=== PATIENT | male | born 1960 | race Caucasian/White ===

== ENCOUNTER 2020-08-10 23:29 | Inpatient (IN) | payer OTHER ==
[~2020-08-10] VITALS: Ht 167.6 cm; Wt 80.3 kg
[2020-08-11 00:49] LABS: BASOPHILS % 0.7 % (0.0-2.0); EOSINOPHILS % 1.1 % (0.0-5.0); HEMOGLOBIN. 14.9 g/dL (12.0-16.0); LYMPHOCYTES % 20.7 % (20.0-50.0); MEAN CORPUSCULAR HEMOGLOBIN 33.3 pg (28.0-32.0); MEAN PLATELET VOLUME 8.6 fl (7.4-10.4); MONOCYTES % 5.6 % (2.0-8.0); NEUTROPHILS % 71.9 % (40.0-76.0); PLATELET 223 x1000/uL (130-400); RED BLOOD CELL COUNT 4.47 mill/uL (4.2-5.4); RED CELL DISTRIBUTION WIDTH 12.9 % (11.6-14.6)
[2020-08-11 00:52] LABS: CHLORIDE 107 mEq/L (98-107)
[2020-08-11 00:56] LABS: ETHANOL BLOOD < 10 mg/dL
[2020-08-11] MEDS ORDERED: KETOROLAC 15MG/ML VIAL IV ONE (01:15)
[2020-08-11] MEDS ORDERED: MORPHINE SULFATE 4 MG/ML CPJ (NOT FOR IM USE) IV ONE (03:15)
[2020-08-11] MEDS ORDERED: ONDANSETRON HCL 4MG/2ML INJ IV ONE (03:15)
[2020-08-11 03:31] LABS: CLARITY URINE CLOUDY (CLEAR); COLOR URINE YELLOW (YELLOW); KETONES URINE NEGATIVE (NEGATIVE); LEUKOCYTE ESTERASE URINE TRACE (NEGATIVE); NITRITE URINE NEGATIVE (NEGATIVE); OCCULT BLOOD URINE NEGATIVE (NEGATIVE); PROTEIN URINE 1+ (NEGATIVE); SPECIFIC GRAVITY URINE 1.023 (1.005-1.030); UROBILINOGEN URINE 0.2 E.U./dL (0.2-1.0)
[2020-08-11 03:44] LABS: *BENZODIAZEPINES SCREEN URINE NEGATIVE (NEGATIVE); *COCAINE SCREEN URINE NEGATIVE (NEGATIVE)
[2020-08-11 03:45] LABS: *AMPHETAMINES SCREEN URINE NEGATIVE (NEGATIVE); *BARBITURATES SCREEN URINE NEGATIVE (NEGATIVE); CANNABINOID URINE SCREEN NEGATIVE (NEGATIVE); METHADONE URINE SCREEN NEGATIVE (NEGATIVE); OPIATES URINE SCREEN NEGATIVE (NEGATIVE); PHENCYCLIDINE URINE SCREEN NEGATIVE (NEGATIVE)
[2020-08-11] MEDS ORDERED: LORAZEPAM 2MG/ML CPJ IV PRN (08:15)
[2020-08-11] MEDS ORDERED: IPRATROPIUM/ALBUTEROL 0.5-3(2.5)MG/3ML NEB HHN PRN (08:15)
[2020-08-11] MEDS ORDERED: CLONIDINE 0.1MG TABLET PO PRN (08:15)
[2020-08-11] MEDS ORDERED: GUAIFENESIN 200MG/10ML SUGAR FREE UDC PO PRN (08:15)
[2020-08-11] MEDS ORDERED: DOCUSATE SODIUM 100MG CAPSULE PO PRN (08:15)
[2020-08-11] MEDS ORDERED: DIPHENHYDRAMINE 50MG/ML VIAL IV PRN (08:15)
[2020-08-11] MEDS ORDERED: MAGNESIUM/ALUMINUM HYDROXIDE/SIMETHICONE 30ML UDC PO PRN (08:15)
[2020-08-11] MEDS ORDERED: ACETAMINOPHEN 325MG TABLET PO PRN (08:15)
[2020-08-11] MEDS ORDERED: HYDRALAZINE 20MG/ML VIAL IV PRN (08:15)
[2020-08-11] MEDS: DEXT 5%/0.45% NACL 1000ML 1,000 ML IV SCH (08:34)
[2020-08-11] MEDS: MORPHINE SULFATE 2 MG/ML CPJ (NOT FOR IM USE) IV PRN ×3 (10:28→21:57)
[2020-08-11] MEDS: HYDROCODONE/ACETAMINOPHEN 5/325MG TABLET PO PRN ×2 (12:14→13:46)
[2020-08-11] MEDS: LEVETIRACETAM 500MG PREMIX 100 ML IV SCH ×2 (13:44→22:54)
[2020-08-11] MEDS: SODIUM CHLORIDE 0.9% INJ 3ML FLUSH IVF SCH ×2 (14:15→22:12)
[2020-08-11] MEDS: ONDANSETRON HCL 4MG/2ML INJ IV PRN (21:57)
[2020-08-12 01:01] LABS: CREATINE KINASE MB FRACTION 24.1 ng/mL (0.5-3.6)
[2020-08-12 01:11] LABS: CREATINE KINASE 3071 IU/L (39-308)
[2020-08-12] MEDS: MORPHINE SULFATE 2 MG/ML CPJ (NOT FOR IM USE) IV PRN (02:14)
[2020-08-12] MEDS: DEXT 5%/0.45% NACL 1000ML 1,000 ML IV SCH ×2 (02:14→17:59)
[2020-08-12] MEDS: ONDANSETRON HCL 4MG/2ML INJ IV PRN (02:14)
[2020-08-12] MEDS: SODIUM CHLORIDE 0.9% INJ 3ML FLUSH IVF SCH ×3 (06:06→20:53)
[2020-08-12 06:45] LABS: CHLORIDE 107 mEq/L (98-107)
[2020-08-12 06:56] LABS: BASOPHILS % 0.3 % (0.0-2.0); EOSINOPHILS % 0.1 % (0.0-5.0); HEMATOCRIT. 37.6 % (42.0-52.0); LYMPHOCYTES % 7.3 % (20.0-50.0); MEAN CORPUSCULAR HEMOGLOBIN 32.8 pg (28.0-32.0); MEAN CORPUSCULAR VOLUME 94.7 fL (80.0-94.0); MEAN PLATELET VOLUME 8.7 fl (7.4-10.4); MONOCYTES % 8.5 % (2.0-8.0); NEUTROPHILS % 83.8 % (40.0-76.0); PLATELET 196 x1000/uL (130-400); RED BLOOD CELL COUNT 3.97 mill/uL (4.7-6.1); RED CELL DISTRIBUTION WIDTH 12.6 % (11.6-14.6)
[2020-08-12 09:30] VITALS: BP 128/79
[2020-08-12] MEDS: HYDROCODONE/ACETAMINOPHEN 5/325MG TABLET PO PRN ×2 (10:20→21:14)
[2020-08-12 12:00] VITALS: BP 126/72
[2020-08-12 16:00] VITALS: BP 115/62
[2020-08-12 20:00] VITALS: BP 148/75
[2020-08-12] MEDS: LEVETIRACETAM 500MG PREMIX 100 ML IV SCH (20:53)
[2020-08-13] VITALS (9 sets, daily range): BP systolic 102–131; BP diastolic 50–74
[2020-08-13] MEDS: HYDROCODONE/ACETAMINOPHEN 5/325MG TABLET PO PRN ×3 (02:47→21:10)
[2020-08-13] MEDS: SODIUM CHLORIDE 0.9% INJ 3ML FLUSH IVF SCH ×2 (05:52→16:08)
[2020-08-13] MEDS ORDERED: LEVETIRACETAM 500MG PREMIX 100 ML IV SCH (11:00)
[2020-08-13] MEDS: DEXT 5%/0.45% NACL 1000ML 1,000 ML IV SCH (11:41)
[2020-08-13] MEDS: LEVETIRACETAM 500MG TABLET PO SCH (21:11)
[2020-08-14] VITALS: BP 121/71
[2020-08-14] MEDS: SODIUM CHLORIDE 0.9% INJ 3ML FLUSH IVF SCH ×4 (01:23→20:43)
[2020-08-14] MEDS: HYDROCODONE/ACETAMINOPHEN 5/325MG TABLET PO PRN ×3 (03:37→20:32)
[2020-08-14] MEDS: DEXT 5%/0.45% NACL 1000ML 1,000 ML IV SCH ×2 (03:39→20:29)
[2020-08-14 06:00] VITALS: BP 128/73
[2020-08-14] MEDS: LEVETIRACETAM 500MG TABLET PO SCH ×2 (08:26→20:43)
[2020-08-14 12:01] VITALS: BP 121/74
[2020-08-14] MEDS: ENOXAPARIN 40MG/0.4ML SYR SUBCUT SCH (12:42)
[2020-08-14 14:01] VITALS: BP 138/77
[2020-08-14 18:00] VITALS: BP 147/77
[2020-08-14 20:00] VITALS: BP 136/78
[2020-08-15] VITALS: BP 121/84
[2020-08-15] MEDS: HYDROCODONE/ACETAMINOPHEN 5/325MG TABLET PO PRN ×2 (01:21→20:30)
[2020-08-15] MEDS: SODIUM CHLORIDE 0.9% INJ 3ML FLUSH IVF SCH ×3 (05:19→22:00)
[2020-08-15 06:00] VITALS: BP 136/88
[2020-08-15] MEDS ORDERED: VANCOMYCIN HCL 1 GM/VIAL ONE ×2 (06:45→09:12)
[2020-08-15] MEDS ORDERED: LIDOCAINE HCL/EPINEPHRINE 1%-EPI 1:100,000 20 ML VIAL ONE (06:45)
[2020-08-15] MEDS ORDERED: BACITRACIN 50,000 UNITS/VIAL ONE ×2 (06:45→07:09)
[2020-08-15] MEDS ORDERED: FENTANYL CITRATE/PF 50MCG/ML 2ML VIAL ONE (07:16)
[2020-08-15] MEDS ORDERED: MIDAZOLAM HCL 2 MG/2 ML VIAL ONE (07:16)
[2020-08-15] MEDS ORDERED: CEFAZOLIN SODIUM 1000MG/VIAL ONE (07:17)
[2020-08-15] MEDS ORDERED: SODIUM CHLORIDE 0.9% 10ML VIAL ONE (07:17)
[2020-08-15] MEDS ORDERED: LIDOCAINE HCL/PF 1% 10 MG/ML 5ML VIAL ONE (07:17)
[2020-08-15] MEDS ORDERED: PROPOFOL 200MG/20ML VIAL IV ONE (07:17)
[2020-08-15] MEDS ORDERED: ROCURONIUM BROMIDE 10MG/ML VIAL 5ML IV ONE (07:19)
[2020-08-15] MEDS ORDERED: SUCCINYLCHOLINE CHLORIDE 200MG/10ML IV ONE (07:20)
[2020-08-15] MEDS ORDERED: DEXAMETHASONE 4MG/ML 1ML VIAL ONE (07:59)
[2020-08-15] MEDS ORDERED: ONDANSETRON HCL 4MG/2ML INJ ONE (07:59)
[2020-08-15] MEDS ORDERED: TRANEXAMIC ACID 1,000 MG in SODIUM CHLORIDE 0.9% 100 ML IV NR (08:00)
[2020-08-15] MEDS ORDERED: TRANEXAMIC ACID 1,000 MG/10 ML IV ONE (08:00)
[2020-08-15] MEDS ORDERED: TRANEXAMIC ACID 1,000 MG/10 ML IV SCH (08:15)
[2020-08-15] MEDS ORDERED: MORPHINE SULFATE/PF 1MG/ML 10ML AMP ONE (08:22)
[2020-08-15] MEDS ORDERED: EPINEPHRINE 1:1000 1 MG/ML AMP ONE (08:23)
[2020-08-15] MEDS ORDERED: KETOROLAC 30MG/ML VIAL ONE (08:24)
[2020-08-15] MEDS ORDERED: ROPIVACAINE HCL 10MG/ML 20 ML VIAL EPI ONE ×2 (08:25→08:32)
[2020-08-15] MEDS: ENOXAPARIN 40MG/0.4ML SYR SUBCUT SCH (09:00)
[2020-08-15] MEDS: LEVETIRACETAM 500MG TABLET PO SCH ×2 (09:00→20:24)
[2020-08-15] MEDS ORDERED: EPHEDRINE SULFATE 50MG/ML VIAL ONE (09:16)
[2020-08-15] MEDS ORDERED: KETOROLAC 30MG/ML VIAL IV PRN (10:45)
[2020-08-15] MEDS ORDERED: HYDROMORPHONE HCL/PF 2MG/ML CPJ IV PRN (11:00)
[2020-08-15] MEDS: ONDANSETRON HCL 4MG/2ML INJ IV PRN (11:52)
[2020-08-15] MEDS ORDERED: CEFAZOLIN 1000MG PREMIX 50 ML IV SCH (12:00)
[2020-08-15 13:30] VITALS: BP 131/82
[2020-08-15 13:46] LABS: HEMATOCRIT. 29.8 % (42.0-52.0); HEMOGLOBIN. 10.4 g/dL (14.0-18.0); MEAN CORPUSCULAR HEMOGLOBIN 32.7 pg (28.0-32.0); MEAN CORPUSCULAR VOLUME 93.9 fL (80.0-94.0); MEAN PLATELET VOLUME 7.8 fl (7.4-10.4); PLATELET 245 x1000/uL (130-400); RED BLOOD CELL COUNT 3.18 mill/uL (4.7-6.1); RED CELL DISTRIBUTION WIDTH 12.4 % (11.6-14.6)
[2020-08-15] MEDS: DEXT 5%/0.45% NACL 1000ML 1,000 ML IV SCH (13:55)
[2020-08-15 14:00] VITALS: BP 135/84
[2020-08-15 14:12] LABS: CHLORIDE 110 mEq/L (98-107)
[2020-08-15 15:03] LABS: PLATELET ESTIMATE NORMAL
[2020-08-15 17:45] VITALS: BP 134/81
[2020-08-15] MEDS: CEFAZOLIN 1000MG PREMIX 50 ML IV SCH (21:34)
[2020-08-16] VITALS: BP 121/71
[2020-08-16 06:00] VITALS: BP 136/84
[2020-08-16] MEDS: CEFAZOLIN 1000MG PREMIX 50 ML IV SCH ×3 (06:30→21:04)
[2020-08-16] MEDS: SODIUM CHLORIDE 0.9% INJ 3ML FLUSH IVF SCH ×3 (06:30→21:04)
[2020-08-16] MEDS: LEVETIRACETAM 500MG TABLET PO SCH ×2 (10:17→21:04)
[2020-08-16] MEDS: ENOXAPARIN 40MG/0.4ML SYR SUBCUT SCH (10:20)
[2020-08-16] MEDS: HYDROCODONE/ACETAMINOPHEN 5/325MG TABLET PO PRN (10:50)
[2020-08-16 12:00] VITALS: BP 119/67
[2020-08-16] MEDS: DEXT 5%/0.45% NACL 1000ML 1,000 ML IV SCH ×2 (14:10→22:20)
[2020-08-16 18:00] VITALS: BP 124/87
[2020-08-16 20:00] VITALS: BP 136/84
[2020-08-17] VITALS: BP 134/70
[2020-08-17] MEDS: SODIUM CHLORIDE 0.9% INJ 3ML FLUSH IVF SCH ×3 (05:49→22:47)
[2020-08-17] MEDS: CEFAZOLIN 1000MG PREMIX 50 ML IV SCH ×3 (05:49→22:47)
[2020-08-17 06:00] VITALS: BP 134/79
[2020-08-17] MEDS: LEVETIRACETAM 500MG TABLET PO SCH ×2 (08:26→22:47)
[2020-08-17] MEDS: ENOXAPARIN 40MG/0.4ML SYR SUBCUT SCH (08:27)
[2020-08-17] MEDS: DEXT 5%/0.45% NACL 1000ML 1,000 ML IV SCH (08:27)
[2020-08-17 12:00] VITALS: BP 114/55
[2020-08-17 18:00] VITALS: BP 139/96
[2020-08-17 20:00] VITALS: BP 119/71
[2020-08-17 23:03] VITALS: BP 130/78
[2020-08-18 00:01] VITALS: BP 138/81
[2020-08-18 02:00] VITALS: BP 116/77
[2020-08-18 04:00] VITALS: BP 113/75
== END 2020-08-18 05:10 | disposition home or self-care (01) | DRG 483 ==
LOC: EDBD 23:29 → EDSEX 23:29 → ER 23:29 → 3WST 08-11 04:39 → ENRESERV 08-12 07:28
PROVIDERS: ADMIT Internal Medicine; ATTEND Internal Medicine
PROC: 0RRJ00Z Replacement of Right Shoulder Joint with Reverse Ball and Socket Synthetic Substitute, Open Approach (ICD-10-PCS; principal; 2020-08-15)
PROC: 4A00X4Z Measurement of Central Nervous Electrical Activity, External Approach (ICD-10-PCS; 2020-08-17)
DX: S42.201A Unspecified fracture of upper end of right humerus, initial encounter for closed fracture (principal); R56.9 Unspecified convulsions; E78.5 Hyperlipidemia, unspecified; I10 Essential (primary) hypertension; E78.00 Pure hypercholesterolemia, unspecified; R74.01 Elevation of levels of liver transaminase levels; W18.39XA Other fall on same level, initial encounter; Z96.611 Presence of right artificial shoulder joint; S43.004A Unspecified dislocation of right shoulder joint, initial encounter; E87.6 Hypokalemia; Z20.822 Contact with and (suspected) exposure to COVID-19; Z95.1 Presence of aortocoronary bypass graft; Y93.89 Activity, other specified; Y92.89 Other specified places as the place of occurrence of the external cause; Y99.8 Other external cause status
CPT/HCPCS: 36415; 70551; 71045; 73030; 73200; 80048; 80053; 82550; 82553; 84484; 85025; 86850; 86900; 88311; 93005; 93970; 95816; 97116; 97162; 97166; 97530; 97760; 99285; J0330; J0690; J1100; J1170; J1650; J1885; J1953; J2060; J2250; J2270; J2274; J2405; J2704; J2795; J3010; J3370; J3490; J7050